=== PATIENT | male | born 1980 | race Caucasian/White ===

== ENCOUNTER 2024-02-11 13:03 | Emergency (ER) | payer SELFPAY ==
[2024-02-11 13:06] VITALS: BP 127/79
[2024-02-11 13:12] VITALS: BMI 25.3
--- NOTE | 2024-02-11 13:43 | ED.MUSCINJ ---
HPI-Injury
General
Chief Complaint: Musculo-Skeletal Complaint
Source: patient
Exam Limitations: none
Time Seen by Provider: 02/11/24 13:20
Nursing documentation reviewed up to this point in time: agreed with
History of Present Illness-Injury
Is this injury a work related problem?: No
Is pt an associate of [facility]/[employer]?: No
Initial Injury comments:
Patient to ED with complaint of pain and swelling to right ant. knee. Symptoms started last PM, swelling has worsened. Denies fever/chills. No history of trauma. No prior history of same.
Past History
Past History
ED Past Medical History: Other (Former IVDA, clean for years)
ED Past Surgical History: None
Social History
Tobacco: Non-smoker
Alcohol: None
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
Personal: Single
Living: with family
Employment: Employed
Family History
Family History: Hypertension
Review of Systems
Review of Systems
Allergies reviewed?: Yes
All Other Systems: ROS reviewed and negative except as documented in HPI and ROS
Constitutional: Reports no symptoms
Musculoskeletal: Reports joint pain (Pain and swelling to right ant. knee)
Skin: Reports no symptoms
Neurological: Reports no symptoms
Psychiatric: Reports no symptoms
Musculoskeletal Injury Exam
Musculoskeletal Injury Exam
Right Anterior Knee:
Pain with Movement?: Moderate
Tender to palpation?: Moderate
Soft tissue swelling?: Mild
External deformity and angulation?: None
Joint effusion?: None
Contusion?: None
Hematoma-local bleeding into tissue?: None
Strain- Sprain- Tear (Connective tissue injury)?: None
Crepitus with movement?: No
Joint instability?: No
Malalignment/deformity?: No
Range of motion: Full
Distal skin color and temperature: normal-warm & good color
Capillary Refill: normal
Normal distal neurovascular exam?: Yes
Phy Exam
General Physical Exam
General Presentation: well appearing and no apparent distress
General age: appears stated age
General Skin: warm and dry
General Habitus: normal
General Mental: alert
Musculoskeletal Exam
Musculoskeletal Exam: neuro vasc intact and other (Right ant knee with pain and mild swelling over bursa concerning for bursitis. No erythema. Full ROM of joint. Placed in Knee immobilizer, will cover with Keflex, follow up with ortho this week.)
Skin Exam
Skin Exam: normal color and warm/dry
Psychiatric Exam
Psychiatric Exam: normal mood/affect
Injury Course
Orders/Labs/Results
Orders:
Orders
02/11/24 13:09
Knee, Right 4 or More Views [CR Knee- Right 4 Or More View*] Urgent
Comment:
Reason For Exam: bunn and swelling
02/11/24 13:40
Cephalexin Monohydrate [Keflex] 500 mg PO NOW STA
*Radiology
Radiology exam reviewed: radiology read reviewed
*Pulse Oximetry
Patient hypoxic: no
*Critical Care Note
Total Time (30-74mins, 75-104mins- exclusive of procedures): Not Applicable
ED Attending Note
-
Portions of this chart may have been created with voice recognition software.� Occasional wrong word or��sound alike� substitutions may have occurred due to the inherent limitations of voice recognition software.
Discharge Plan
Departure
Patient Disposition: Home (Routine Discharge)
Date of Disposition: 02/11/24
Time of Disposition: 13:41
Patient with high blood pressure during this ER visit?: No
Condition: Good
Covid-19: Not Applicable
Discharge Problem:
Bursitis of knee
Instructions: Knee Immobilizer (DC), Prepatellar Bursitis (DC), Ibuprofen
Prescriptions:
New
cephalexin 500 mg capsule
500 mg PO QID 10 Days Qty: 40 0RF
No Action
methadone [Methadose] 10 MG/ML concentrate
7 mg PO DAILY
Patient Comments:
06/07/19 Tried calling Sujey at [phone] mailbox full could not leave message
methadone [Methadose] 10 MG/ML concentrate
5 mg PO QPM
Patient Comments:
06/07/19 [phone] could not leave message
epinephrine [EpiPen] 0.3 mg/0.3 mL auto-injector
0.3 mg IM ONCE PRN (Reason: anaphylaxis) Qty: 1 0RF
famotidine [Pepcid] 20 mg tablet
20 mg PO BID Qty: 10 0RF
Referrals:
Jeffrey Tellez MD [Active] - Call in 1-3 days for appt
Interventions
Interventions:
*Risk Screen - Suicide Last Done: 02/11/24 13:06
*General Assessment Last Done: 02/11/24 13:06
*Neglect/Abuse Screening Last Done: 02/11/24 13:06
ED- Fall Risk Assessment Last Done: 02/11/24 13:12
*ED COVID-19 Vaccine History Last Done: 02/11/24 13:12
ED-Musculoskeletal Assessment Last Done: 02/11/24 13:12
Discharge Date and Time
Print Language: KENYAN
[2024-02-11] MEDS: KEFLEX 500 MG PO (13:54)
== END 2024-02-11 13:59 | disposition home or self-care (01) ==
LOC: EMR 13:03
PROVIDERS: EMERGENCY PHYSICIAN Emergency Medicine
DX: M70.51 Other bursitis of knee, right knee (principal); M25.561 Pain in right knee; F41.9 Anxiety disorder, unspecified; F19.11 Other psychoactive substance abuse, in remission; Z88.8 Allergy status to other drugs, medicaments and biological substances
CPT/HCPCS: 99283; 29505; 73564